=== PATIENT | male | born 1955 | race Hispanic/Latino ===

== ENCOUNTER 2016-09-09 07:04 | Day surgery (SDC) | payer OTHER ==
[2016-09-04 10:11] LABS: Basophils % (Auto) 0.5 % (0.0-1.8); Eosinophils % (Auto) 3.9 % (0.0-4.3); Hematocrit 44.5 % (35.5-45.6); Hemoglobin 14.6 gm/dl (11.8-15.2); Mean Corpuscular HGB Conc 33 % (32-34); Mean Corpuscular Hemoglobin 30 pg (28-32); Mean Corpuscular Volume 91 fl (84-94); Platelet Count 244 K/mm3 (140-440); Red Blood Count 4.91 M/mm3 (3.65-5.03); Red Cell Distribution Width 13.3 % (13.2-15.2); White Blood Count 6.8 K/mm3 (4.5-11.0)
--- NOTE | 2016-09-04 10:11 | Anesthesia Consultation ---
Anesthesia Consult and Med Hx Date of service: 09/09/16 - Airway Anesthetic Teeth Evaluation: Poor (multiple missing teeth back upper and lower) , Chipped (front upper #7+8) ROM Head & Neck: Adequate Mental/Hyoid Distance: Inadequate Mallampati Class: Class III Intubation Access Assessment: Possibly Difficult - Pulmonary Exam CTA: Yes - Cardiac Exam Cardiac Exam: RRR - Pre-Operative Health Status ASA Pre-Surgery Classification: ASA3 Proposed Anesthetic Plan: General - Pulmonary Hx Smoking: Yes (STOPPED X 20 YRS-1/2PPD X 20YRS, occassional cigar) Hx Sleep Apnea: No (JOSE MANUEL PRE SCREEN HIGH RISK) - Cardiovascular System Hx Hypertension: Yes (X 5 YRS) - Central Nervous System Hx Psychiatric Problems: Yes (3 yrs ago global 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
[2016-09-04 10:21] LABS: INR 0.95 (0.87-1.13); Partial Thromboplastin Time 29.8 Sec. (24.2-36.6)
[2016-09-04 10:36] LABS: Alanine Aminotransferase 13 units/L (7-56); Albumin 4.1 g/dL (3.9-5); Albumin/Globulin Ratio 1.4 %; Alkaline Phosphatase 72 units/L (35-129); Bilirubin,Total 0.3 mg/dL (0.1-1.2); Blood Urea Nitrogen 13 mg/dL (9-20); Calcium 8.7 mg/dL (8.4-10.2); Carbon Dioxide 23 mmol/L (22-30); Glucose 100 mg/dL (75-100)
[2016-09-04 10:37] LABS: Anion Gap 21 mmol/L; Chloride 106.3 mmol/L (98-107); Potassium 4.4 mmol/L (3.6-5.0); Sodium 146 mmol/L (137-145)
[~2016-09-09 07:04] MED LIST: ANCEF/STERILE WATER 2 GM/20 ML 2 GM/20 ML SYRINGE IV NR; NACL 0.9% 1000 ML 1,000 ML IV SCH; PEPCID PO NR; VERSED IV NR
[2016-09-09] MEDS ORDERED: NACL BACTERIOSTATIC INFILTRATI ONE (08:03)
[2016-09-09] MEDS ORDERED: DIPRIVAN 10 MG/ML IV ONE ×2 (09:04→10:23)
[2016-09-09] MEDS ORDERED: SUBLIMAZE ONE (09:04)
[2016-09-09] MEDS ORDERED: XYLOCAINE MPF 2% ONE (09:05)
[2016-09-09] MEDS ORDERED: NACL 0.9% 1000 ML 0 ML ONE (09:21)
--- NOTE | 2016-09-09 10:02 | Anesthesia Day of Surgery ---
Anesthesia Day of Surgery - Day of Surgery Patient Examined: Yes Patient H&P Reviewed: Yes Patient is NPO: Yes
[2016-09-09] MEDS ORDERED: ZOFRAN ONE (10:24)
[2016-09-09] MEDS ORDERED: MARCAINE-EPI 0.25%-1:200,000 IJ ONE ×2 (10:44)
[2016-09-09] MEDS ORDERED: ePHEDrine SULFATE ONE (10:51)
[2016-09-09] MEDS ORDERED: DECADRON ONE (10:57)
[2016-09-09] MEDS ORDERED: NEO SYNEPHRINE/NS Syringe(OR USE) IV ONE (10:58)
[2016-09-09] MEDS ORDERED: ROBINUL ONE (10:58)
[2016-09-09 12:20] VITALS: BP 105/66
--- NOTE | 2016-09-09 12:23 | Post Anesthesia Evaluation ---
- Post Anesthesia Evaluation Patient Participated: Yes Airway Patent: Yes Stable Respiratory Function: Yes Nausea/Vomiting: No Temp > 96.8F: Yes Pain Manageable: Yes Adequeate Hydration: Yes Anesthesia Complications: No Block Receding Appropriately: Not Applicable Patient on Ventilator: No
--- NOTE | 2016-09-09 13:03 | Short Stay Summary ---
Short Stay Documentation Date of service: 09/09/16 - History H&P: obtained from office - Allergies and Medications Current Medications: Allergies No Known Allergies Allergy (Verified 09/02/16 11:46) Home Medications Medication Instructions Recorded Confirmed Last Taken Type Aspirin [Adult Low Dose Aspirin EC] 81 mg PO DAILY 09/02/16 09/09/16 09/02/16 History Meloxicam [Mobic] 15 mg PO DAILY 09/02/16 09/09/16 09/05/16 History Olmesartan (Nf) [Benicar (Nf)] 40 mg PO QDAY 09/02/16 09/09/16 09/08/16 23:00 History Active Medications Famotidine (Pepcid) 20 mg PO PREOP NR Stop: 09/09/16 23:59 Last Admin: 09/09/16 08:09 Dose: 20 mg Sodium Chloride (Nacl 0.9% 1000 Ml) 1,000 mls @ 42 mls/hr IV DIRECT JAZ Last Admin: 09/09/16 08:10 Dose: 42 mls/hr Cefazolin Sodium (Ancef/Sterile Water 2 Gm/20 Ml) 2 gm in 20 mls @ 80 mls/hr IV PREOP NR PRN Reason: Protocol Stop: 09/09/16 23:59 Midazolam HCl (Versed) 2 mg IV PREOP NR Stop: 09/09/16 23:59 Last Admin: 09/09/16 08:24 Dose: 2 mg - Brief post op/procedure progress note Date of procedure: 09/09/16 Pre-op diagnosis: medial meniscal tear and arthritis right knee Post-op diagnosis: same Procedure: arthroscopic partial medial menicectomy, medial chondroplasty,removal of loose bodies. Anesthesia: GETA Surgeon: CLAIR GUEVARA Estimated blood loss: none Pathology: none Specimen disposition: discarded Condition: stable - Disposition Condition at discharge: Stable Disposition: DISCHARGED TO HOME OR SELFCARE Short Stay Discharge Plan Additional Instructions: AMBULATED WITH [facility] APPOINTMENT KEEP ALREADY SCHEDULE APPOINTMENT WITH DR GUEVARA. CALL HIS OFFICE FOR ANY QUESTIONS OR CONCERNS RELATED TO PROCEDURE. PRESCRIPTION GIVEN FOR PAIN TAKE DIRECTED. Follow up with: ROYA BAY MD [Primary Care Provider] - 7 Days Forms: Outpatient Surgery IN Inst.
--- NOTE | 2016-09-09 14:03 | Operative Report ---
PREOPERATIVE DIAGNOSES: Medial meniscal tear and arthritis, medial compartment, right knee joint. POSTOPERATIVE DIAGNOSES: Medial meniscal tear and arthritis, medial compartment, right knee joint. PROCEDURE: Diagnostic arthroscopy, arthroscopic partial medial meniscectomy, arthroscopic chondroplasty and debridement of the medial compartment of the joint. SURGEON: Mulugeta Walden MD PEDICURIST: Justino Peres RN ANESTHESIA: General. COMPLICATIONS: None. 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 This patient underwent resection of the femur, a complex tear of the medial meniscus. The lateral compartment was found to be normal with mild wear of the patellofemoral joint. PROCEDURE IN DETAIL: Once the patient was in surgical room, a time-out was carried to identify the patient and procedure, prepping and draping of the patient done in usual fashion. The procedure was carried out by the insertion of the scope into the medial and lateral parapatellar portal. Diagnostic arthroscopy of the knee joint was carried out at this point without any problems or complications. Once the diagnostic arthroscopy was carried out with the aforementioned findings, the patient underwent resection and cleaning out of the chondral surface of the femur using the rotator meniscotome. This was carried out until all the loose carried out and basically several areas bone was exposed. The procedure was then continued with irrigation and debridement and removal of all the fragments of cartilage. The meniscus was then addressed at this point and the patient had a complex tear of the meniscus with tears both in the vertical and horizontal planes. The tears were resected using the rotator meniscotome. Multiple digital pictures were taken. Once this was done, evaluation of the ACL demonstrated to be within normal limits. The patient had a normal lateral compartment of the knee and very little wear of the patellofemoral groove. The procedure was then terminated. We infiltrated with Marcaine with epinephrine. Closure of the wound was carried out with a 4-0 Monocryl suture. Compression bandage was applied. The patient tolerated the procedure well. There were no complications. JOB# [id number] AV/UCHE
--- NOTE | 2016-09-10 01:07 | Admit Criteria Form ---
Admission Criteria Documentation: AMBULATORY SURGERY EXCEPTION CRITERIA Ambulatory Surgery Exception Criteria ( Place 'X' for any and all applicable criteria): Surgery or procedure performed on ambulatory basis may require inpatient stay for[A] ANY ONE of the following(1)(2)(3)(4)(5)(6)(7)(8)(9): [X] I. A preoperative situation, condition, or finding that warrants inpatient stay as indicated by ANY ONE of the following: [] a) Inpatient care needed because of severity of a disease or condition rather than the surgery (eg, severe cardiac or respiratory disease, severe infection) (15) (16 ) (17) (18) [] b) Emergent procedure (eg, angioplasty for acute ischemia)(19) [] c) Complex surgical approach or situation as indicated by ANY ONE of the following(3): [] i) Open approach needed instead of usual endoscopic, transcatheter, or other less invasive procedure [] ii) Difficult approach because of previous operation [] iii) Airway monitoring required after open neck procedures(20)(21) [] iv) Large mass requiring unusually extensive dissection [] v) Additional complicating feature requiring inpatient care (eg, drain management)(22(23): [X] d) Major surgery in a pt with high anesthetic risk as indicated by ANY ONE of the following (2)(3)(5)(7)(8): [X] i) ASA risk class III or higher (severe systemic disease impairing function) [D] [] ii) Advanced age (eg, older than 85 years)(14)(24) [] iii) Symptomatic heart failure(25) [] iv) Symptomatic asthma or COPD(8)(21) [] v) Morbid obesity with hemodynamic or respiratory problems(20)( 21)(26)(27) [] vi) Obstructive sleep apnea(20)(21) [] vii) Former premature infants who are younger than 60 weeks [] viii) High risk for severe postoperative abnormalities (eg, severe postoperative hypocalcemia after parathyroidectomy for severe hyperparathyroidism)(27)( 28) [] ix) Unstable angina(25) [] e) Drug-related risk requiring inpatient stay as indicated by ANY ONE of the following(5)(10)(14)(32)(33) [] i) Procedure requires discontinuing drugs or other therapy (eg , antiarrhythmic medication, antiseizure medication), which necessitates inpatient observation or treatment.(18)(31) [] ii) Major surgery and high risk drug use as indicated by ANY ONE of the following: [] 1) Active abuse of cocaine or similar drug [] 2) Monoamine oxidase inhibitor use [] 3) Other drug identified as posing risk [] f) Inadequate outpatient care situation as indicated by ANY ONE of the following(5)(10)(14)(32)(33) [] i) Patient lives remote from medical facility and procedure has urgent complication potential, and temporary nearby residence cannot be arranged [] ii) Patient will have postprocedure incapacitation and inadequate assistance at home, or alternative level of care cannot be arranged. [] iii) Patient will have long general anesthesia or procedure side effect resolution time, and competent person to stay with patient on first postoperative night at home or alternative level of care cannot be arranged. []iv) Other inadequate outpatient situation that cannot be handled by other means [] II. A perioperative event, condition, or finding that warrants inpatient stay as indicated by ANY ONE of the following (1)(2)(3): [] a) Inadequate physiologic recovery: cardiovascular, respiratory, or hemodynamic status not normal or near preoperative baseline(18) [] b) Hemodynamic instability [] c) Patient not alert with near normal or baseline mental status [] d) Temperature not normal or as expected and not appropriate for outpatient treatment of condition [] e) Ambulatory or appropriate activity level status not yet achieved post procedure [E](34)(35)(36) [] f) Operative site not appropriate (eg, unexpected or excessive drainage or bleeding) [] g) Postoperative effects not resolved or adequately managed (eg, significant pain or vomiting not appropriate for outpatient or next level of care)(10)(12) [] h) Complicating features requiring inpatient care as indicated by ANY ONE of the following(37): [] i) Severe complications of procedure (eg, bowel injury, airway compromise, vascular injury,severe hemorrhage) [] ii) Extensive (eg, dissection far beyond usual scope of procedure ) or prolonged (eg, 120 minutes beyond usual) surgery needed requiring inpatient postoperative care [] iii) Conversion to an open or complex procedure that requires inpatient care (eg, open vs laparoscopic cholecystectomy, abdominal vs vaginal hysterectomy)(38) [] iv) Comorbid condition or test result identified during or post procedure that requires inpatient care (7) [] v) Malignant hyperthermia(30) [] vi) Other complicating feature requiring inpatient care(22)(23) Inpatient stay may be needed until ALL of the following are present (1)(2)(3)(4) (5)(6)(10)(14)(33)(40): []a) Physiologic recovery: cardiovascular, respiratory, and hemodynamic status normal or near preoperative baseline []b) Hemodynamic stability []c) Patient alert, with near normal or baseline mental status []d) Temperature appropriate: patient afebrile or temperature appropriate for outpt treatment of condition []e) Activity level appropriate: ambulatory or appropriate activity level post procedure []f) Operative site appropriate as indicated by ALL of the following: []i) Site dry or with expected drainage []ii) Any blood noted is as expected for procedure. []g) Postoperative effects resolved or managed as indicated by ALL of the following: []i) Pain management appropriate for outpatient (or next level of) care(10) []ii) Minimal nausea and vomiting: if present, successfully treated with oral medication(12) []iii) Headache, dizziness, or drowsiness (if present) are mild. []h) Voiding status acceptable as indicated by ANY ONE of the following: []i) Voiding spontaneously []ii) No voiding but instructions given for follow-up in 6 to 8 hours []iii) Urinary catheter in place, and instructions given for follow-up []i) Complicating features requiring inpatient care manageable at a lower level of care(37) []j) Comorbid conditions manageable at a lower level of care(37) The original [employer] content created by [employer] has been revised. The portions of the content which have been revised are identified through the use of italic text or in bold, and [facility] [employer] has neither reviewed nor approved the modified material. All other unmodified content is copyright [employer]. Please see references footnoted in the original [employer] edition 2016 Admission Criteria Met: Yes
== END 2016-09-09 13:52 | disposition home or self-care (01) ==
LOC: OR 07:04
DX: S83.231A Complex tear of medial meniscus, current injury, right knee, initial encounter (principal); M17.12 Unilateral primary osteoarthritis, left knee; I10 Essential (primary) hypertension; K21.9 Gastro-esophageal reflux disease without esophagitis; E66.9 Obesity, unspecified; Z68.42 Body mass index [BMI] 45.0-49.9, adult; Z72.89 Other problems related to lifestyle; Z87.891 Personal history of nicotine dependence; Z80.9 Family history of malignant neoplasm, unspecified; Z82.49 Family history of ischemic heart disease and other diseases of the circulatory system; X58.XXXA Exposure to other specified factors, initial encounter; Y93.9 Activity, unspecified; Y92.9 Unspecified place or not applicable; Y99.9 Unspecified external cause status
CPT/HCPCS: 29881; 36415; 80053; 85025; 85610; 85730; 97161; G8978; G8979; G8980; J0690; J1100; J2250; J2370; J2405; J2704; J3010; J7030

== ENCOUNTER 2017-10-30 18:49 | Emergency (ER) | payer OTHER ==
[2017-10-30 19:06] VITALS: BP 140/54
--- NOTE | 2017-10-30 19:49 | Emergency Department Report ---
- General Chief Complaint: Wound/Laceration Stated Complaint: LAC Time Seen by Provider: 10/30/17 19:45 Source: patient Mode of arrival: Ambulatory Limitations: No Limitations - History of Present Illness Initial Comments: Patient is a 62-year-old male presents to ED complaining of laceration to the head status post fall earlier today. Patient states he was carrying a small ladder going outside when he lost his footing and fell with the ladder and hit his head on the ladder. Patient states he got a little dizzy after the incident but had no loss of consciousness. Patient states he got up after incident and was able to take a picture of the laceration to the head. Patient denies headache, dizziness, blurry vision, shortness of breath or chest pain. - Related Data Home Medications Medication Instructions Recorded Confirmed Last Taken Aspirin [Adult Low Dose Aspirin EC] 81 mg PO DAILY 09/02/16 09/09/16 09/02/16 Meloxicam [Mobic] 15 mg PO DAILY 09/02/16 09/09/16 09/05/16 Olmesartan (Nf) [Benicar (Nf)] 40 mg PO QDAY 09/02/16 09/09/16 09/08/16 23:00 Previous Rx's Medication Instructions Recorded Last Taken Type Cephalexin [Keflex] 500 mg PO BID #10 capsule 10/30/17 Unknown Rx Ibuprofen [Motrin] 800 mg PO Q8HR PRN #30 tablet 10/30/17 Unknown Rx Allergies Allergy/AdvReac Type Severity Reaction Status Date / Time No Known Allergies Allergy Verified 09/02/16 11:46 ED Review of Systems ROS: Stated complaint: LAC Other details as noted in HPI Constitutional: denies: chills, fever Eyes: denies: eye pain, eye discharge, vision change ENT: denies: ear pain, throat pain Respiratory: denies: cough, shortness of breath, wheezing Cardiovascular: denies: chest pain, palpitations Endocrine: no symptoms reported Gastrointestinal: denies: abdominal pain, nausea, diarrhea Genitourinary: denies: urgency, dysuria Musculoskeletal: denies: back pain, joint swelling, arthralgia Skin: denies: rash, lesions Neurological: denies: headache, weakness, paresthesias Psychiatric: denies: anxiety, depression Hematological/Lymphatic: denies: easy bleeding, easy bruising ED Past Medical Hx - Past Medical History Hx Hypertension: Yes (X 5 YRS) Hx Renal Disease: No Hx Arthritis: Yes - Surgical History Past Surgical History?: Yes Additional Surgical History: Meniscus repair, radical mastoid, carpal tunnel - Social History Smoking Status: Current Some Day Smoker - Medications Home Medications: Home Medications Medication Instructions Recorded Confirmed Last Taken Type Aspirin [Adult Low Dose Aspirin EC] 81 mg PO DAILY 09/02/16 09/09/16 09/02/16 History Meloxicam [Mobic] 15 mg PO DAILY 09/02/16 09/09/16 09/05/16 History Olmesartan (Nf) [Benicar (Nf)] 40 mg PO QDAY 09/02/16 09/09/16 09/08/16 23:00 History Cephalexin [Keflex] 500 mg PO BID #10 capsule 10/30/17 Unknown Rx Ibuprofen [Motrin] 800 mg PO Q8HR PRN #30 tablet 10/30/17 Unknown Rx ED Physical Exam - General Limitations: No Limitations General appearance: alert, in no apparent distress - Head Head exam: Present: atraumatic, normocephalic, other (10-12 cm laceration to back of head) - Eye Eye exam: Present: normal appearance, PERRL. Absent: conjunctival injection Pupils: Present: normal accommodation - ENT ENT exam: Present: mucous membranes moist - Neck Neck exam: Present: normal inspection, full ROM. Absent: tenderness - Respiratory Respiratory exam: Present: normal lung sounds bilaterally. Absent: respiratory distress, wheezes - Cardiovascular Cardiovascular Exam: Present: regular rate, normal rhythm. Absent: systolic murmur, diastolic murmur, rubs, gallop - GI/Abdominal GI/Abdominal exam: Present: soft, normal bowel sounds. Absent: distended, tenderness - Rectal Rectal exam: Present: deferred - Extremities Exam Extremities exam: Present: normal inspection - Back Exam Back exam: Present: normal inspection - Neurological Exam Neurological exam: Present: alert, oriented X3, CN II-XII intact, normal gait - Expanded Neurological Exam Expanded Patient oriented to: Present: person, place, time Speech: Present: fluid speech Cranial nerves: EOM's Intact: Normal, Facial Sensation: Normal Cerebellar function: Finger to Nose: Normal Sensory exam: Upper Extremity Light Touch: Normal, Lower Extremity Light Touch: Normal Motor strength exam: RUE: 5, LUE: 5, RLE: 5, LLE: 5 Best Eye Response (Marla): (4) open spontaneously Best Motor Response (Marla): (6) obeys commands Best Verbal Response (Marla): (5) oriented Marla Total: 15 - Psychiatric Psychiatric exam: Present: normal affect, normal mood - Skin Skin exam: Present: warm, dry, intact, normal color. Absent: rash ED Course Vital Signs 10/30/17 18:59 Temperature 98.1 F Pulse Rate 97 H Respiratory 22 Rate Blood Pressure 140/54 O2 Sat by Pulse 99 Oximetry - Laceration /Wound Repair Posterior Head Wound Location: head (scalp) Wound Length (cm): 12 Wound's Depth, Shape: into muscle, linear Wound Explored: clean Irrigated w/ Saline (ccs): 200 Betadine Prep?: Yes Anesthesia: 1% Lidocaine Volume Anesthetic (ccs): 6 Wound Repaired With: sutures Number of Sutures: 18 Layer Closure?: No Sterile Dressing Applied?: Yes ED Medical Decision Making - Radiology Data Radiology results: report reviewed, image reviewed FINAL REPORT PROCEDURE: CT HEAD/BRAIN WO CON TECHNIQUE: Computerized tomography of the head was performed without contrast material. HISTORY: laceration to head COMPARISON: No prior studies are available for comparison. FINDINGS: Skull and scalp: Normal. Paranasal sinuses: Visualized bilateral paranasal sinuses are clear. There is opacification of right mastoid air cells with sclerotic changes. There is evidence of prior right mastoidectomy.. Ventricles and subarachnoid spaces: Normal. Cerebrum: No evidence of hemorrhage, acute infarction or mass . Cerebellum and brainstem: No evidence of hemorrhage, acute infarction or mass. Vasculature: Normal. Comments: None. IMPRESSION: No acute intracranial abnormality Evidence of chronic right mastoiditis with changes of prior surgery. Transcribed By: [facility] [place] Dictated By: QUINN BARNHART Electronically Authenticated By: QUINN BARNHART Signed Date/Time: 10/30/172034 - Medical Decision Making 62-year-old male presents with laceration to the scalp status post fall ED course: CT of the head without contrast ordered. Patient received tetanus booster and ED. CT results normal Discussed this findings with the patient. I discussed the patient to follow up with his primary care return to ED 7-10 days for staple removal Patient is alert and oriented 3, shows no neuro deficits. He understands instructions given. he tolerated procedure well, see laceration note sign patient is sent home on antibiotics and pain medication Critical care attestation.: If time is entered above; I have spent that time in minutes in the direct care of this critically ill patient, excluding procedure time. ED Disposition Clinical Impression: Laceration of scalp Qualifiers: Encounter type: initial encounter Qualified Code(s): S01.01XA - Laceration without foreign body of scalp, initial encounter Fall at home Qualifiers: Encounter type: initial encounter Qualified Code(s): W19.XXXA - Unspecified fall, initial encounter Disposition: TO HOME OR SELFCARE Is pt being admited?: No Does the pt Need Aspirin: No Condition: Stable Instructions: Laceration (ED), Scalp Contusion in Adults (ED), Staple Care (ED) Additional Instructions: Make sure to follow up with the primary care physician as discussed. Take all your medications as you've been prescribed. If you have any worsening symptoms or develop new symptoms please return to ED immediately. Return to ED in 7-10 days for staple removal Prescriptions: Cephalexin [Keflex] 500 mg PO BID #10 capsule Ibuprofen [Motrin] 800 mg PO Q8HR PRN #30 tablet PRN Reason: Pain Referrals: ROYA BAY MD [Primary Care Provider] - 3-5 Days NANETTE ACUÑA MD [Referring] - 3-5 Days [facility] [Outside] - 3-5 Days [facility] [Outside] - 3-5 Days Forms: Accompanied Note, Work/School Release Form(ED)
[2017-10-30] MEDS ORDERED: XYLOCAINE 2% INFILTRATI ONE (20:32)
--- NOTE | 2017-10-30 20:41 | Cat Scan Report ---
FINAL REPORT PROCEDURE: CT HEAD/BRAIN WO CON TECHNIQUE: Computerized tomography of the head was performed without contrast material. HISTORY: laceration to head COMPARISON: No prior studies are available for comparison. FINDINGS: Skull and scalp: Normal. Paranasal sinuses: Visualized bilateral paranasal sinuses are clear. There is opacification of right mastoid air cells with sclerotic changes. There is evidence of prior right mastoidectomy.. Ventricles and subarachnoid spaces: Normal. Cerebrum: No evidence of hemorrhage, acute infarction or mass . Cerebellum and brainstem: No evidence of hemorrhage, acute infarction or mass. Vasculature: Normal. Comments: None. IMPRESSION: No acute intracranial abnormality Evidence of chronic right mastoiditis with changes of prior surgery.
[2017-10-30] MEDS ORDERED: BOOSTRIX IM ONE (21:32)
== END 2017-10-30 22:00 | disposition home or self-care (01) ==
LOC: ED 18:49
DX: S01.01XA Laceration without foreign body of scalp, initial encounter (principal); I10 Essential (primary) hypertension; F17.200 Nicotine dependence, unspecified, uncomplicated; Z79.82 Long term (current) use of aspirin; W18.30XA Fall on same level, unspecified, initial encounter; Y93.89 Activity, other specified; Y92.009 Unspecified place in unspecified non-institutional (private) residence as the place of occurrence of the external cause; Y99.8 Other external cause status
CPT/HCPCS: 70450; 90471; 90715; 99283

== ENCOUNTER 2017-12-10 11:40 | Outpatient (CLI) | payer OTHER ==
--- NOTE | 2017-12-10 23:20 | XRay Report ---
FINAL REPORT PROCEDURE: XR CHEST ROUTINE 2V TECHNIQUE: PA and lateral chest radiographs were obtained. CPT 02627 HISTORY: BRONCHITIS, WHEEZING COMPARISON: No prior studies are available for comparison. FINDINGS: Heart: Normal. Mediastinum/Vessels: Normal. Lungs/Pleural space: Lungs are hyperinflated. There are no confluent infiltrates or mass lesions. Pleural spaces are clear.. Bony thorax: No acute osseous abnormality. Other: IMPRESSION: COPD No acute pulmonary process..
== END 2017-12-10 11:41 | disposition home or self-care (01) ==
LOC: XRAY 11:40
PROVIDERS: ATTEND Internal Medicine
DX: J44.9 Chronic obstructive pulmonary disease, unspecified (principal); J40 Bronchitis, not specified as acute or chronic; I10 Essential (primary) hypertension; G47.30 Sleep apnea, unspecified; K21.9 Gastro-esophageal reflux disease without esophagitis; E66.9 Obesity, unspecified; F17.200 Nicotine dependence, unspecified, uncomplicated
CPT/HCPCS: 71046

== ENCOUNTER 2018-10-22 08:17 | Outpatient (CLI) | payer MEDICARE, OTHER ==
[2018-10-22 11:17] LABS: Hematocrit 41.3 % (35.5-45.6); Hemoglobin 14.1 gm/dl (11.8-15.2); Mean Corpuscular HGB Conc 34 % (32-34); Mean Corpuscular Volume 91 fl (84-94); Platelet Count 267 K/mm3 (140-440); Red Blood Count 4.52 M/mm3 (3.65-5.03); Red Cell Distribution Width 12.9 % (13.2-15.2)
[2018-10-22 11:25] LABS: Albumin 4.3 g/dL (3.9-5); Calcium 8.9 mg/dL (8.4-10.2); Chol/HDL Ratio 3.28 %
== END 2018-10-22 08:18 | disposition home or self-care (01) ==
LOC: LAB 08:17
PROVIDERS: ATTEND Internal Medicine
DX: E66.01 Morbid (severe) obesity due to excess calories (principal); I10 Essential (primary) hypertension; E29.1 Testicular hypofunction; K57.90 Diverticulosis of intestine, part unspecified, without perforation or abscess without bleeding; K21.9 Gastro-esophageal reflux disease without esophagitis; Z87.891 Personal history of nicotine dependence
CPT/HCPCS: 36415; 80053; 80061; 82306; 82607; 84443; 85027

== ENCOUNTER 2019-03-04 08:21 | Outpatient (CLI) | payer MEDICARE, OTHER ==
[2019-03-07 18:09] LABS: Vitamin D, 25-OH, D2 <4 ng/mL
== END 2019-03-04 08:22 | disposition home or self-care (01) ==
LOC: LAB 08:21
PROVIDERS: ATTEND Internal Medicine
DX: E55.9 Vitamin D deficiency, unspecified (principal); R73.03 Prediabetes; E29.1 Testicular hypofunction; E56.9 Vitamin deficiency, unspecified; I10 Essential (primary) hypertension; K21.9 Gastro-esophageal reflux disease without esophagitis; E66.9 Obesity, unspecified
CPT/HCPCS: 36415; 82306; 82607; 83036

== ENCOUNTER 2019-07-08 08:40 | Outpatient (CLI) | payer MEDICARE, OTHER | END 2019-07-08 08:41 | disposition home or self-care (01) | LOC: LAB 08:40 | PROVIDERS: ATTEND Internal Medicine | DX: N18.9 Chronic kidney disease, unspecified (principal); R73.03 Prediabetes; E29.1 Testicular hypofunction | CPT/HCPCS: 36415; 80048; 83036 ==

== ENCOUNTER 2022-02-04 08:29 | Outpatient (CLI) | payer MEDICARE, OTHER ==
[2022-02-04 12:21] LABS: Basophils % (Auto) 0.7 % (0.0-1.8); Eosinophils # (Auto) 0.2 K/mm3 (0.0-0.4); Eosinophils % (Auto) 3.2 % (0.0-4.3); Hematocrit 40.7 % (35.5-45.6); Hemoglobin 13.9 gm/dl (11.8-15.2); Lymphocytes # (Auto) 1.5 K/mm3 (1.2-5.4); Lymphocytes % (Auto) 22.5 % (13.4-35.0); Mean Corpuscular HGB Conc 34 % (32-34); Mean Corpuscular Volume 90 fl (84-94); Monocytes # (Auto) 0.5 K/mm3 (0.0-0.8); Monocytes % (Auto) 7.4 % (0.0-7.3); Platelet Count 259 K/mm3 (140-440); Red Blood Count 4.51 M/mm3 (3.65-5.03)
[2022-02-04 12:32] LABS: Albumin 4.2 g/dL (3.9-5); Chol/HDL Ratio 2.87 %
== END 2022-02-04 08:30 | disposition home or self-care (01) ==
LOC: LABHHL 08:29
PROVIDERS: ATTEND Internal Medicine
DX: I10 Essential (primary) hypertension (principal); R73.03 Prediabetes; E66.01 Morbid (severe) obesity due to excess calories; R39.11 Hesitancy of micturition; Z00.00 Encounter for general adult medical examination without abnormal findings
CPT/HCPCS: 36415; 80053; 80061; 82306; 83036; 84153; 84439; 85025